=== PATIENT | female | born 1945 | race Hispanic/Latino ===

== ENCOUNTER 2022-10-17 05:59 | Inpatient (IN) | payer MEDICAID, OTHER ==
[~2022-10-17] VITALS: Ht 149.9 cm; Wt 54.0 kg
[2022-10-17] VITALS (17 sets, daily range): BP systolic 87–129; BP diastolic 44–72
[2022-10-17 09:51] LABS: BASOPHILS % (AUTO) 0.7 % (0.0-5.0); EOSINOPHILS % (AUTO) 1.3 % (0.0-8.0); HEMATOCRIT 35.9 % (36-48); LYMPHOCYTES % (AUTO) 19.3 % (21.0-51.0); MEAN CORPUSCULAR HEMOGLOBIN 32.5 pg (27.0-33.0); MEAN CORPUSCULAR HGB CONC 32.9 g/dL (32.0-36.0); MEAN CORPUSCULAR VOLUME 98.9 fL (79-99); MONOCYTES % (AUTO) 7.5 % (3.0-13.0); NEUTROPHILS % (AUTO) 71.1 % (40.0-77.0); PLATELET COUNT (AUTO) 131 K/uL (130-400); RED BLOOD CELL COUNT(AUTO) 3.63 MIL/uL (4.00-5.50); RED CELL DISTRIBUTION WIDTH 12.6 % (11.0-15.5); WHITE BLOOD COUNT (AUTO) 7.1 K/uL (4.8-10.8)
[2022-10-17] MEDS ORDERED: LIDOCAINE HCL-MPF 1% 2ML VIAL IV PRN (10:00)
[2022-10-17] MEDS ORDERED: POTASSIUM CHLORIDE 20MEQ/100ML 100 ML IV PRN (10:00)
[2022-10-17] MEDS: CARVEDILOL 3.125 MG TABLET PO SCH ×2 (10:00→20:42)
[2022-10-17] MEDS ORDERED: MAGNESIUM 2GM PREMIX 50ML 50 ML IV PRN (10:00)
[2022-10-17] MEDS ORDERED: POTASSIUM CHLORIDE 10% ELIXIR 20 MEQ/15 ML UDCUP PO PRN (10:00)
[2022-10-17 10:03] LABS: INR 0.93 (0.85-1.15)
[2022-10-17 10:05] LABS: CREATININE 0.8 mg/dL (0.5-1.5); PARTIAL THROMBOPLASTIN TIME 59.7 SEC (26.3-35.5); POTASSIUM 3.9 mmol/L (3.5-5.1)
[2022-10-17 10:09] LABS: ALBUMIN 3.2 g/dL (3.5-5.0); MAGNESIUM 2.1 mg/dL (1.80-2.40); PHOSPHORUS 2.9 mg/dL (2.5-4.9); TOTAL PROTEIN, SERUM 6.9 g/dL (6.0-8.3)
[2022-10-17] MEDS ORDERED: NITROGLYCERIN 50MG/D5W 250ML 250 BOT IV SCH (10:30)
[2022-10-17] MEDS ORDERED: MONT-39 PO (10:42)
[2022-10-17] MEDS ORDERED: ALBU90AE2 IH (10:42)
[2022-10-17] MEDS ORDERED: ASPI-1005 PO (10:42)
[2022-10-17] MEDS ORDERED: ASPIRIN 81MG CHEW TAB ONE (11:26)
[2022-10-17] MEDS ORDERED: VERAPAMIL HCL 2.5 MG/ML VIAL ONE (12:39)
[2022-10-17] MEDS ORDERED: NITROGLYCERIN 50MG VIAL ONE (12:39)
[2022-10-17] MEDS ORDERED: HEPARIN 10,000 UNIT/10ML (1,000 UNIT/ML) VIAL ONE (12:39)
[2022-10-17] MEDS ORDERED: LIDOCAINE HCL 400MG/20ML VIAL ONE (12:40)
[2022-10-17] MEDS ORDERED: FENTANYL CITRATE PF 50 MCG/1 ML 2ML VIAL ONE (12:40)
[2022-10-17] MEDS ORDERED: IOHEXOL 350 MG/ML 100ML INFUS..BTL IV ONE (12:40)
[2022-10-17] MEDS ORDERED: MIDAZOLAM HCL 1 MG/ML 2ML VIAL ONE (12:40)
[2022-10-17] MEDS ORDERED: DEXTROSE 50%-WATER 50 ML DISP.SYRIN IV PRN (14:00)
[2022-10-17] MEDS ORDERED: GLUCAGON 1MG KIT 1 MG ML IM PRN (14:00)
[2022-10-17] MEDS ORDERED: ATORVASTATIN 40 MG TABLET PO SCH (21:00)
[2022-10-17] MEDS: ENOXAPARIN SODIUM 40 MG/0.4 ML SYRINGE SQ SCH (21:07)
[2022-10-18] VITALS (7 sets, daily range): BP systolic 97–111; BP diastolic 45–60
[2022-10-18] MEDS ORDERED: IBUPROFEN 200 MG TAB PO ONE
[2022-10-18] MEDS: IPRATROPIUM/ALBUTEROL SULFATE 3 ML SOLUTION IH PRN ×5 (00:54→18:57)
[2022-10-18 07:59] LABS: HEMATOCRIT 33.9 % (36-48); MEAN CORPUSCULAR HEMOGLOBIN 32.2 pg (27.0-33.0); MEAN CORPUSCULAR VOLUME 97.4 fL (79-99); RED BLOOD CELL COUNT(AUTO) 3.48 MIL/uL (4.00-5.50); RED CELL DISTRIBUTION WIDTH 12.8 % (11.0-15.5); WHITE BLOOD COUNT (AUTO) 5.2 K/uL (4.8-10.8)
[2022-10-18 08:12] LABS: POTASSIUM 3.5 mmol/L (3.5-5.1); TOTAL PROTEIN, SERUM 6.3 g/dL (6.0-8.3)
[2022-10-18] MEDS: ENOXAPARIN SODIUM 40 MG/0.4 ML SYRINGE SQ SCH (08:32)
[2022-10-18] MEDS: ASPIRIN 81MG CHEW TAB PO SCH (08:32)
[2022-10-18] MEDS: CLOPIDOGREL 75MG TAB PO SCH (08:32)
[2022-10-18] MEDS: CARVEDILOL 3.125 MG TABLET PO SCH (08:33)
[2022-10-18] MEDS: KCL 20 MEQ ERTAB PO PRN ×2 (08:45→13:55)
[2022-10-19] VITALS (7 sets, daily range): BP systolic 86–130; BP diastolic 39–62
[2022-10-19] MEDS: IPRATROPIUM/ALBUTEROL SULFATE 3 ML SOLUTION IH PRN ×2 (00:12→12:03)
[2022-10-19] MEDS ORDERED: LISINOPRIL 5 MG TABLET PO ONE (09:00)
[2022-10-19] MEDS ORDERED: METOPROLOL SUCCINATE 50 MG TAB.SR.24H PO SCH (09:00)
[2022-10-19] MEDS: ENOXAPARIN SODIUM 40 MG/0.4 ML SYRINGE SQ SCH (09:01)
[2022-10-19] MEDS: CLOPIDOGREL 75MG TAB PO SCH (09:01)
[2022-10-19] MEDS: ASPIRIN 81MG CHEW TAB PO SCH (09:02)
[2022-10-19] MEDS: FUROSEMIDE 20 MG TABLET PO SCH (09:02)
[2022-10-20 03:53] VITALS: BP 108/54
[2022-10-20] MEDS ORDERED: CLOP-31 PO (07:10)
[2022-10-20] MEDS ORDERED: METO50TA9 PO (07:10)
[2022-10-20] MEDS ORDERED: FURO20TA6 PO (07:10)
[2022-10-20 07:43] VITALS: BP 99/41
[2022-10-20] MEDS: ASPIRIN 81MG CHEW TAB PO SCH (08:17)
[2022-10-20] MEDS: CLOPIDOGREL 75MG TAB PO SCH (08:17)
[2022-10-20] MEDS: FUROSEMIDE 20 MG TABLET PO SCH (08:18)
[2022-10-20] MEDS: ENOXAPARIN SODIUM 40 MG/0.4 ML SYRINGE SQ SCH (08:19)
[2022-10-20] MEDS ORDERED: LISINOPRIL 2.5 MG TABLET PO SCH (09:00)
[2022-10-20] MEDS ORDERED: METOPROLOL SUCCINATE 25 MG TAB.SR.24H PO SCH (09:00)
== END 2022-10-20 12:24 | disposition home or self-care (01) | DRG 190 ==
LOC: 2CH 09:02 → 2AH 16:55
PROVIDERS: ADMIT Internal Medicine; ATTEND Internal Medicine
PROC: 4A023N7 Measurement of Cardiac Sampling and Pressure, Left Heart, Percutaneous Approach (ICD-10-PCS; principal; 2022-10-17)
PROC: B2111ZZ Fluoroscopy of Multiple Coronary Arteries using Low Osmolar Contrast (ICD-10-PCS; 2022-10-17)
DX: I21.4 Non-ST elevation (NSTEMI) myocardial infarction (principal); D69.6 Thrombocytopenia, unspecified; I42.7 Cardiomyopathy due to drug and external agent; I50.20 Unspecified systolic (congestive) heart failure; I11.0 Hypertensive heart disease with heart failure; J45.909 Unspecified asthma, uncomplicated; I25.10 Atherosclerotic heart disease of native coronary artery without angina pectoris; T50.905A Adverse effect of unspecified drugs, medicaments and biological substances, initial encounter; E78.5 Hyperlipidemia, unspecified; Z91.14 Patient's other noncompliance with medication regimen; Y92.89 Other specified places as the place of occurrence of the external cause
CPT/HCPCS: 36415; 80053; 82948; 83735; 84100; 84484; 85025; 85027; 85347; 85610; 85730; 93005; 93306; 93356; 93458; 94640; 99156; 99157; C1769; G0378; J1644; J1650; J2250; J3010; J3490; Q9967

== ENCOUNTER 2022-12-14 16:10 | Observation (INO) | payer MEDICAID, OTHER ==
[~2022-12-14] VITALS: Ht 152.4 cm; Wt 53.3 kg
[~2022-12-14 16:10] MED LIST: ALBU90AE2 IH; ASPI-1005 PO; CLOP-31 PO; FURO20TA6 PO; METO50TA9 PO; MONT-39 PO
[2022-12-14 16:49] LABS: BASOPHILS % (AUTO) 0.8 % (0.0-5.0); EOSINOPHILS % (AUTO) 5.2 % (0.0-8.0); HEMATOCRIT 37.7 % (36-48); LYMPHOCYTES % (AUTO) 35.6 % (21.0-51.0); MEAN CORPUSCULAR HEMOGLOBIN 32.5 pg (27.0-33.0); MEAN CORPUSCULAR HGB CONC 33.7 g/dL (32.0-36.0); MEAN CORPUSCULAR VOLUME 96.4 fL (79-99); NEUTROPHILS % (AUTO) 50.2 % (40.0-77.0); PLATELET COUNT (AUTO) 184 K/uL (130-400); RED BLOOD CELL COUNT(AUTO) 3.91 MIL/uL (4.00-5.50); RED CELL DISTRIBUTION WIDTH 12.7 % (11.0-15.5); WHITE BLOOD COUNT (AUTO) 5.2 K/uL (4.8-10.8)
[2022-12-14 17:16] LABS: CREATININE 0.8 mg/dL (0.5-1.5); POTASSIUM 3.9 mmol/L (3.5-5.1)
[2022-12-14 17:26] LABS: ALBUMIN 3.7 g/dL (3.5-5.0); TOTAL PROTEIN, SERUM 7.7 g/dL (6.0-8.3)
[2022-12-14] MEDS ORDERED: ONDANSETRON 4MG INJ IV PRN (19:00)
[2022-12-14] MEDS ORDERED: ASPIRIN 81MG CHEW TAB PO ONE ×2 (19:00)
[2022-12-14] MEDS ORDERED: ACETAMINOPHEN 325 MG TAB PO PRN (19:00)
[2022-12-14] MEDS ORDERED: HYDROCODONE/ACETAMINOPHEN 5/325 MG TAB PO PRN (19:00)
[2022-12-14] MEDS ORDERED: HYDROMORPHONE 0.5 MG SYG (0.5MG/0.5ML) IV PRN (19:00)
[2022-12-14] MEDS: NITROGLYCERIN 1GM OINT 1 INCH/1GM TD SCH (19:50)
[2022-12-14 22:35] VITALS: BP 137/70
[2022-12-14] MEDS: ACETAMINOPHEN 325 MG TAB PO PRN (23:19)
[2022-12-15] MEDS ORDERED: ATORVASTATIN 40 MG TABLET PO ONE
[2022-12-15] MEDS: NITROGLYCERIN 1GM OINT 1 INCH/1GM TD SCH ×3 (03:31→18:29)
[2022-12-15 04:29] VITALS: BP 107/55
[2022-12-15 04:30] LABS: BASOPHILS % (AUTO) 0.8 % (0.0-5.0); EOSINOPHILS % (AUTO) 5.8 % (0.0-8.0); HEMATOCRIT 34.6 % (36-48); LYMPHOCYTES % (AUTO) 38.3 % (21.0-51.0); MEAN CORPUSCULAR HEMOGLOBIN 31.9 pg (27.0-33.0); MEAN CORPUSCULAR HGB CONC 32.7 g/dL (32.0-36.0); MEAN CORPUSCULAR VOLUME 97.7 fL (79-99); MONOCYTES % (AUTO) 8.3 % (3.0-13.0); NEUTROPHILS % (AUTO) 46.6 % (40.0-77.0); PLATELET COUNT (AUTO) 176 K/uL (130-400); RED BLOOD CELL COUNT(AUTO) 3.54 MIL/uL (4.00-5.50); RED CELL DISTRIBUTION WIDTH 12.8 % (11.0-15.5); WHITE BLOOD COUNT (AUTO) 5.3 K/uL (4.8-10.8)
[2022-12-15 04:52] LABS: CREATININE 0.9 mg/dL (0.5-1.5); MAGNESIUM 2.3 mg/dL (1.80-2.40); PHOSPHORUS 3.5 mg/dL (2.5-4.9); POTASSIUM 3.9 mmol/L (3.5-5.1)
[2022-12-15 08:13] VITALS: BP 126/61
[2022-12-15] MEDS: ENOXAPARIN SODIUM 40 MG/0.4 ML SYRINGE SQ SCH (09:03)
[2022-12-15] MEDS: FAMOTIDINE 20MG TAB PO SCH (09:03)
[2022-12-15 11:43] VITALS: BP 123/58
[2022-12-15 16:26] VITALS: BP 147/78
[2022-12-15 19:45] VITALS: BP 147/68
[2022-12-15] MEDS ORDERED: ATORVASTATIN 40 MG TABLET PO SCH (21:00)
[2022-12-16] VITALS: BP 142/66
[2022-12-16] MEDS: ACETAMINOPHEN 325 MG TAB PO PRN (03:17)
[2022-12-16] MEDS: NITROGLYCERIN 1GM OINT 1 INCH/1GM TD SCH ×2 (03:18→11:00)
[2022-12-16 04:00] VITALS: BP 111/53
[2022-12-16] MEDS ORDERED: SOLU-MEDROL 40MG VIAL IVP SCH (07:30)
[2022-12-16 07:32] LABS: BASOPHILS % (AUTO) 0.4 % (0.0-5.0); EOSINOPHILS % (AUTO) 1.5 % (0.0-8.0); LYMPHOCYTES % (AUTO) 21.1 % (21.0-51.0); MEAN CORPUSCULAR HEMOGLOBIN 32.2 pg (27.0-33.0); MEAN CORPUSCULAR VOLUME 97.3 fL (79-99); MONOCYTES % (AUTO) 9.8 % (3.0-13.0); PLATELET COUNT (AUTO) 161 K/uL (130-400); RED BLOOD CELL COUNT(AUTO) 3.39 MIL/uL (4.00-5.50); RED CELL DISTRIBUTION WIDTH 12.5 % (11.0-15.5); WHITE BLOOD COUNT (AUTO) 8.1 K/uL (4.8-10.8)
[2022-12-16 07:40] VITALS: BP 112/48
[2022-12-16 07:44] LABS: ALBUMIN 3.2 g/dL (3.5-5.0); CREATININE 0.8 mg/dL (0.5-1.5); POTASSIUM 3.9 mmol/L (3.5-5.1); TOTAL PROTEIN, SERUM 6.9 g/dL (6.0-8.3)
[2022-12-16] MEDS ORDERED: MONTELUKAST SODIUM 10 MG TAB PO SCH (09:00)
[2022-12-16] MEDS ORDERED: CETIRIZINE HCL 5 MG TABLET PO SCH (09:00)
[2022-12-16] MEDS ORDERED: PREDNISONE 20 MG TABLET PO SCH (09:00)
[2022-12-16] MEDS ORDERED: METH4TAB3 PO (09:09)
[2022-12-16] MEDS: FAMOTIDINE 20MG TAB PO SCH (10:47)
[2022-12-16] MEDS: ENOXAPARIN SODIUM 40 MG/0.4 ML SYRINGE SQ SCH (10:49)
[2022-12-16] MEDS ORDERED: IPRATROPIUM/ALBUTEROL SULFATE 3 ML SOLUTION IH SCH (12:00)
[2022-12-16] MEDS ORDERED: BUDESONIDE 0.5 MG/2 ML INH IH SCH (18:00)
== END 2022-12-16 11:40 | disposition home or self-care (01) ==
LOC: EDH 16:10 → EDHIP 18:42 → INTOOBSV 18:42 → 4DH 22:36
PROVIDERS: ADMIT Hospitalist; ATTEND Hospitalist
DX: R07.89 Other chest pain (principal); J45.901 Unspecified asthma with (acute) exacerbation; I25.10 Atherosclerotic heart disease of native coronary artery without angina pectoris; I21.4 Non-ST elevation (NSTEMI) myocardial infarction; I44.7 Left bundle-branch block, unspecified; I25.2 Old myocardial infarction; Z51.5 Encounter for palliative care; Z79.82 Long term (current) use of aspirin; Z79.899 Other long term (current) drug therapy; Z88.5 Allergy status to narcotic agent; Z90.49 Acquired absence of other specified parts of digestive tract; Z98.890 Other specified postprocedural states
CPT/HCPCS: 99285; 84484 ×4; 80053 ×2; 85025 ×3; 36415 ×3; 71045; 93005; 96372 ×2; 83735; 84100; 80048; 94760 ×2; 96374; 96375; 94664; J1650 ×2; G0378 ×2; J2405; J2920

== ENCOUNTER 2024-01-06 19:39 | Emergency (ER) | payer MEDICAID ==
[~2024-01-06] VITALS: Ht 152.4 cm; Wt 54.0 kg
[~2024-01-06 19:39] MED LIST changes: -ALBU90AE2 IH; +ALBU90AE3 IH; +METH4TAB3 PO
[2024-01-06] MEDS: IBUPROFEN 600 MG TABLET PO ONE (20:21)
[2024-01-06] MEDS: DEXAMETHASONE SOD PHOSPHATE 4 MG/ML 1ML VIAL IM ONE (20:21)
[2024-01-06] MEDS ORDERED: METH4TAB3 PO (21:11)
[2024-01-06 21:47] VITALS: BP 136/66; PULSE 78; RESP 20; O2SAT 98
[2024-01-06] MEDS ORDERED: ONDANSETRON 4MG INJ IVP ONE (22:00)
[2024-01-06] MEDS ORDERED: MORPHINE 4 MG SYG IVP ONE (22:00)
== END 2024-01-06 21:49 | disposition home or self-care (01) ==
LOC: EDH 19:39
DX: M19.011 Primary osteoarthritis, right shoulder (principal); Z79.02 Long term (current) use of antithrombotics/antiplatelets; Z79.82 Long term (current) use of aspirin; Z79.899 Other long term (current) drug therapy; Z88.5 Allergy status to narcotic agent
CPT/HCPCS: 99284; 73060; 73030; 96372; J1100